=== PATIENT | male | born 1980 | race Caucasian/White ===

== ENCOUNTER 2016-12-24 14:36 | Emergency (ER) ==
[2016-12-24 14:40] VITALS: BP 127/85; TEMP 98.2; BMI 25.8
[2016-12-24] MEDS ORDERED: TORADOL IM STA (14:55)
--- NOTE | 2016-12-24 14:58 | ED.PDOC ---
General ED Provider: Dr. KOLTON POLLARD Chief Complaint: Knee Pain/Injury Stated Complaint: right knee sprain Time Seen by Physician: 14:40 (tiwsited right knee 2 days ago) Mode of Arrival: Walk-In Information Source: Patient Exam Limitations: No limitations Nursing and Triage Documentation Reviewed and Agree: Yes (this pt was seen with bertha anthony RN) Musculoskeletal Complaint Exam - Knee Pain Complaint/Exam Mechanism of Injury: Reports: Trauma Onset/Duration: 2 days Symptoms Are: Still present Onset of Pain: Reports: Days Initial Severity: Moderate Current Severity: Moderate Location: Reports: Discrete Character: Reports: Aching Alleviating: Reports: Rest, Position Aggravating: Reports: Movement, Weight bearing, Prolonged standing Associated Signs and Symptoms: Denies: Swelling, Redness, Bruising, Fever, Weakness, Numbness, Tingling Able to Bear Weight: Yes Septic Arthritis Risk Factors: Reports: None Gout Risk Factors: Reports: None Knee Findings: Present: Tenderness, Limited range of motion. Absent: Swelling, Ecchymosis, Abnormal contour, Rotation, Laceration, Erythema, Warmth, Blisters, Other joint pain, Foreign body David Test Positive: No Shraddha Test Positive: No Limited Range of Motion: Present: Active, Passive, Flexion, Extension, Patellar apprehension Differential Diagnoses: Closed Fracture, Internal Derangement, Sprain, Strain Review of Systems - Review Of Systems Constitutional: Reports: No symptoms Eyes: Reports: No symptoms Ears, Nose, Mouth, Throat: Reports: No symptoms Respiratory: Reports: No symptoms Cardiac: Reports: No symptoms GI: Reports: No symptoms : Reports: No symptoms Musculoskeletal: Reports: Joint pain Skin: Reports: No symptoms Neurological: Reports: No symptoms Endocrine: Reports: No symptoms Hematologic/Lymphatic: Reports: No symptoms All Other Systems: Reviewed and Negative Past Medical History - Past Medical History Previously Healthy: Yes Endocrine: Reports: None Cardiovascular: Reports: None Respiratory: Reports: None Hematological: Reports: None Gastrointestinal: Reports: None Genitourinary: Reports: None Neuro/Psych: Reports: None Musculoskeletal: Reports: None Cancer: Reports: None - Surgical History General Surgical History: Reports: Unknown - Family History Family History: Reports: Unknown - Social History Smoking Status: Current every day smoker Hx Substance Use: Yes (ALCOHOL) Alcohol Screening: None Physical Exam - Physical Exam Appearance: Well-appearing, No pain distress, Well-nourished Eyes: CHRISTA, EOMI, Conjunctiva clear ENT: Ears normal, Nose normal, Oropharynx normal Respiratory: Airway patent, Breath sounds clear, Breath sounds equal, Respirations nonlabored Cardiovascular: RRR, Pulses normal, No rub, No murmur GI/: Soft, Nontender, No masses, Bowel sounds normal, No Organomegaly Musculoskeletal: Limited ROM (right knee ) Skin: Warm, Dry, Normal color Neurological: Sensation intact, Motor intact, Reflexes intact, Cranial nerves intact, Alert, Oriented Psychiatric: Affect appropriate, Mood appropriate Interpretation - Radiology Interpretation Radiology Interpretation By: Radiologist Critical Care Note - Critical Care Note Total Time (mins): 0 Course - Course Orders, Labs, Meds: Orders Category Date Time Status Ketorolac Tromethamine [Toradol] MEDS 12/24/16 14:55 Stat 30 mg IM ONCE STA KNEE, LEFT 4 VIEWS Stat RADS 12/24/16 14:54 Ordered Medications Generic Name Dose Route Start Last Admin Trade Name Freq PRN Reason Stop Dose Admin Ketorolac Tromethamine 30 mg 12/24/16 14:55 Toradol IM 12/24/16 14:56 ONCE STA Vital Signs: Temp Pulse Resp BP Pulse Ox 12/24/16 14:37 98.2 F 94 H 16 127/85 98 Departure - Departure Time of Disposition: 15:45 (D/C INSTRUCTIONS GIVEN BERTHA WAS AT BED SIDE USE OF CRUTCHES AND FOLLOW UP WITH [facility] DISCUSSED) Disposition: HOME SELF-CARE Discharge Problem: Knee pain Instructions: Knee Pain (ED) Condition: Good Pt referred to PMD for follow-up: Yes Additional Instructions: Please call your Family Physician as soon as possible to schedule a follow-up appointment.YOU MUST USE THE CRUTCHES AT ALL TIMES TAKE YOUR PAINMEDS MAKE SURE YOU DO FOLLOW UP WITH [facility]. IF PAIN PERSISTS DIFFERENT OR WORSE MAY BE YOUR KNEE IS TORN. [facility] KNEED REQIRES MRI FOR FURTHER EVALUATION, MAKE SURE YOU DO FOLLOW UP Prescriptions: Hydrocodone/Acetaminophen [[place] 10-325 Tablet] 1 each PO Q8HR #6 tablet Allergies/Adverse Reactions: Allergies tramadol Adverse Reaction (Verified 12/24/16 14:40) SEIZURES Home Medications: Ambulatory Orders Hydrocodone/Acetaminophen [[place] 10-325 Tablet] 1 each PO Q8HR #6 tablet
--- NOTE | 2016-12-24 15:36 | DI ---
EXAM: Four views of the right knee. History: Right knee pain. Findings / impression: Age indeterminate chip/avulsion fracture of the anterior tibial tubercle with adjacent soft tissue swelling. No dislocation.
== END 2016-12-24 16:00 | disposition home or self-care (01) ==
LOC: ED 14:36
DX: M25.561 Pain in right knee (principal); X50.1XXA Overexertion from prolonged static or awkward postures, initial encounter; F17.210 Nicotine dependence, cigarettes, uncomplicated
CPT/HCPCS: 99283

== ENCOUNTER 2017-05-02 11:00 | Outpatient (RCR) ==
--- NOTE | 2017-04-26 15:34 | RS.OPPTEV2 ---
Date of Note: 04/26/17 Visit #: 1 Date of Evaluation: 04/26/17 Payer Source: Medicaid Surgery Performed?: Yes Procedure Performed: Excision of osteophyte, right proximal tibia excision of prepatellar bursa Date of Procedure: 02/17/17 Treatment Diagnosis: Right knee pain, Right knee weakness, s/p knee surgery History of Condition/Mechanism of Injury:: Patient reports having surgery on the right knee. States he had no specific any, but started noticing swelling and pain with activity on the right LE. Reports no prior surgeries or injuries to this knee. Prior Level of Function.....Patient was independent with: ADL's, Self Care, Work /Vocation, Caregiving, Ambulation/Mobility, Community Integration/Access Functional Limitations: Standing, Squatting, Ambulation Current Subjective/complaints:: Patient reports right knee pain with weight bearing activities, squatting, or ascending/descending stairs. States his job requires him to go up and down ladders frequently, squat frequently, and kneel on concrete. States his range of motion is good, but does not feel like he would be able to return to work at this time due to the pain and difficulty with the above mentioned activities. He denies popping in either knee joint. States community or household ambulation does not cause much pain or swelling. States he does notice swelling with prolonged weight bearing. States he returns to the doctor tomorrow for a follow up appointment. He is hoping to return to work in 3-4 weeks. Treatment Side (optional): Right *Precautions: . Medical History Surgical History Comments:: this right knee surgery 02/17/17. Left shoulder labral repair 2006 and 2008 Smoking Status: Current some day smoker Hx Home Medications: Hydrocodone,Ibuprofen, Effexor XR, Buspar, omeprazole Patient's Goals: His goal is to return to his prior level of function and return to work. Pain Assessment - Pain Description Pain Location: Right knee Current Pain Intensity: 3/10 Worst Pain Intensity: 6/10 Functional Outcome Measure LE Functional Scale: 52 (52/80=35% impairment) - G Codes & Severity Modifier G Codes & Modifier: NA Source of G Code score: NA Observation - Observation Inspection: Right knee presents with healing incision running vertically along the patellar tendon, approximately 2 inches in length. Girth Measurement Lower: Left tibial plateau 37 cm, Right tibial plateau 38 cm Gait - Gait Pattern Gait Comments: Patient ambulates without an assistive device with slight decreased stance on the right LE. - Left Knee ROM Left Knee Extension: full extension Left Knee Flexion: 130 (degrees AROM) - Right Knee ROM Right Knee Extension: -1 degree from full extension Right Knee Flexion: 132 (degrees AROM) - Left Knee Strength Left Knee Extension: 5 Normal Left Knee Flexion: 5 Normal - Right Knee Strength Right Knee Extension: 4 Good Right Knee Flexion: 4+ Good + - Special Tests Knee Anterior Drawer Test: Negative Right Knee Posterior Drawer Test: Negative Right Knee Valgus Stress Test: Negative Right Knee Varus Stress Test: Negative Right Knee Shraddha Test: Negative Right Patella Apprehension Test: Negative Right Patellar Compression Test: Negative Right Comments: Strength testing on Biodex with Isokinetic activity: At 60 deg/sec, Left quads 124.7 ft/lbs, HS 55.7 ft/lbs. Right quads 98 ft/lbs, HS 60.4 ft/ lbs. At 45 deg/sec, left quads demonstrate 145.5 ft/lbs, HS 65.3 ft/lbs. Right quads demonstrate 79.4 ft/lbs. HS 57.8 ft/lbs. Palpation Comments:: Reports tenderness with moderate pressure over the incision at the patellar tendon. Sensation - Sensation Right Lower Extremity: Intact/Normal Left Lower Extremity: Intact/Normal Additional Comments: Additional Comments: SLR bilaterally to 45-50 degrees. Patient attempts to perform a standing squat. Demonstrates difficulty and reports pain with knee flexion beyond 80-90 degrees while squatting. Interventions - Exercise/Activities/Manual Therapy Exercises/Activities: Patient instructed in exercises for HEP of SLR's, SAQ's, and multi angle standing SLR's with green theraband. Manual Therapy: NA HOME EXERCISE PROGRAM: SLR's, SAQ's, and multi angle standing SLR's with green theraband. - Charges Timed Code Treatment Minutes: 0 Total Treatment Time: 45 mins Procedures billed for this date of service:: GEOVANY Fields Assessment Assessment: Patient presents s/p excision of osteophyte and proximal tibia excision of prepatellar bursa on 02/17/17. His main complaint is pain and difficulty with squats and other advanced weight bearing activities. He demonstrates weakness of the right quads and HS compared to the left knee. Isokinetic testing demonstrates to have at least a 21% strength deficit of the right quads compared to the left. His job requires frequent squatting, kneeling , and climbing ladders. He demonstrates the need for Right knee strengthening to prepare him to return to work, so that he can perform the above activities without pain. Patient Education: Education of diagnosis, Body/Joint mechanics, Home Exercise Program, Education of Plan of Care Rehab Potential: Good Short Term Goals Goal #1: Pt independent and compliant with HEP. Goal to be met by: 05/10/17 Goal #2: Right quad strength improved by 10% with isokinetic testing. Goal to be met by: 05/10/17 Goal #3: Patient able to perform a squat to 90 degrees knee flexion w/o difficulty. Goal to be met by: 05/10/17 Goal #4: . Verification Specialist Goals Goal #1: Pt knows HEP and to continue ex's to maintain functional level at D/C. Goal to be met by: 06/15/17 Goal #2: Score on LE functional scale improved to 72/80. Goal to be met by: 06/15/17 Goal #3: Pt able to ascend/descend stairs without knee pain or difficulty. Goal to be met by: 06/15/17 Goal #4: Patient able to squat as needed to return to work with minimal difficulty. Goal to be met by: 06/15/17 Plan - Treatment to be Provided Procedures: Therapeutic Exercises, Therapeutic Activity, Neuromuscular Rehab, Patient Education Modalities: Ultrasound/Phonophoresis, Class IV Laser, Cryotherapy - Treatment Plan Frequency: 3 X week Duration: 6 weeks ORDER # VISITS AND/OR THROUGH DATE: 06/15/17 - Treatment Code (1) Knee pain Code(s): M25.569 - PAIN IN UNSPECIFIED KNEE Qualifiers: Chronicity: acute Laterality: right Qualified Code(s): M25.561 - Pain in right knee (2) Quadriceps weakness Code(s): M62.81 - MUSCLE WEAKNESS (GENERALIZED) Comments: M6. (3) S/P knee surgery Code(s): Z98.89 - OTHER SPECIFIED POSTPROCEDURAL STATES * DO NOT USE * Comments: Z98.890
--- NOTE | 2017-04-28 14:05 | RS.OPPTDN ---
Subjective Date of Note: 04/28/17 Visit #: 2 Date of Evaluation: 04/26/17 Payer Source: Medicaid Treatment Diagnosis: Right knee pain, Right knee weakness, s/p knee surgery Current Subjective/complaints:: Patient reports fatigue and mild soreness in right quads following session, but denies pain. States he is working on HEP and has received return to work release for Feburary 12th. *Precautions: . Pain Assessment - Pain Description Pain Location: Right knee Current Pain Intensity: mild soreness Interventions - Exercise/Activities/Manual Therapy Exercises/Activities: Assisted stretching hamstrings, SKTC, and heel cords. Quad sets Added 3# to SLR and 2# to SLR/VMO. SAQ with 6#. Red theraband for hip add and abd with knee in full extension. Red theraband for resistive ankle DF. Biodex for 6sets/5reps of isometrics at angles between 90 and 60 degrees flexion. Isokinetic rehab 5reps each of 45, 60, 75, 110, and 125deg/sec resistance. Ended with 4mins on stationary bike. Total minutes of Exercise: 45mins Manual Therapy: NA HOME EXERCISE PROGRAM: SLR's, SAQ's, and multi angle standing SLR's with green theraband. Hamstring stretching. - Charges Timed Code Treatment Minutes: 45mins Total Treatment Time: 50mins Procedures billed for this date of service:: EX3 Assessment: Patient motivated to progress with strengtheing. Patient Education: Education of diagnosis, Body/Joint mechanics, Home Exercise Program, Home Safety, Activity Modification Patient demonstrates compliance with HEP?: Yes Short Term Goals Goal #1: Pt independent and compliant with HEP. Goal to be met by: 05/10/17 Progress towards Goal:: Progressing Goal #2: Right quad strength improved by 10% with isokinetic testing. Goal to be met by: 05/10/17 Goal #3: Patient able to perform a squat to 90 degrees knee flexion w/o difficulty. Goal to be met by: 05/10/17 Goal #4: . [facility] Goals Goal #1: Pt knows HEP and to continue ex's to maintain functional level at D/C. Goal to be met by: 06/15/17 Progress towards goal: Progressing Goal #2: Score on LE functional scale improved to 72/80. Goal to be met by: 06/15/17 Goal #3: Pt able to ascend/descend stairs without knee pain or difficulty. Goal to be met by: 06/15/17 Goal #4: Patient able to squat as needed to return to work with minimal difficulty. Goal to be met by: 06/15/17 Plan PLAN OF CARE EXPIRES ON:: 06/15/17 ORDER # VISITS AND/OR THROUGH DATE: 06/15/17 PLAN: Progress with strengthening for patient to be able to return to work duties.
--- NOTE | 2017-05-02 13:31 | RS.OPPTDN ---
Subjective Date of Note: 05/02/17 Visit #: 3 Date of Evaluation: 04/26/17 Payer Source: Medicaid Treatment Diagnosis: Right knee pain, Right knee weakness, s/p knee surgery Current Subjective/complaints:: Patient reports only mild fatigue after last session. States he is working on HEP and feels like he is progressing. *Precautions: . Pain Assessment - Pain Description Pain Location: Right knee joint Current Pain Intensity: mild to mod Interventions - Exercise/Activities/Manual Therapy Exercises/Activities: Assisted stretching hamstrings, SKTC, and heel cords. Quad sets. Added 3# to SLR 2s/10reps and 3# SLR/VMO 4s/5reps. SAQ increased to 7 #. Red theraband for hip add and abd with knee in full extension. Red theraband for resistive ankle DF. Ham curl green theraband. All EX 2s/10reps. Began leg press 60# 2s/10reps. Biodex for 6sets/5reps of isometrics at angles between 90 and 60 degrees flexion. Isokinetic rehab 5reps each of 30, 45, 75, 90, 180, and 195deg/sec resistance. Ended with 5mins on stationary bike. Total minutes of Exercise: 45mins Manual Therapy: NA HOME EXERCISE PROGRAM: SLR's, SAQ's, and multi angle standing SLR's with green theraband. Hamstring stretching. - Charges Timed Code Treatment Minutes: 40mins Total Treatment Time: 45mins Procedures billed for this date of service:: EX3 Assessment: Patient progressing well with strengthening in department. Patient Education: Body/Joint mechanics, Home Exercise Program, Home Safety Patient demonstrates compliance with HEP?: Yes Short Term Goals Goal #1: Pt independent and compliant with HEP. Goal to be met by: 05/10/17 Progress towards Goal:: Progressing Goal #2: Right quad strength improved by 10% with isokinetic testing. Goal to be met by: 05/10/17 Progress towards Goal:: Progressing Goal #3: Patient able to perform a squat to 90 degrees knee flexion w/o difficulty. Goal to be met by: 05/10/17 Goal #4: . [facility] Goals Goal #1: Pt knows HEP and to continue ex's to maintain functional level at D/C. Goal to be met by: 06/15/17 Progress towards goal: Progressing Goal #2: Score on LE functional scale improved to 72/80. Goal to be met by: 06/15/17 Goal #3: Pt able to ascend/descend stairs without knee pain or difficulty. Goal to be met by: 06/15/17 Goal #4: Patient able to squat as needed to return to work with minimal difficulty. Goal to be met by: 06/15/17 Plan PLAN OF CARE EXPIRES ON:: 06/15/17 ORDER # VISITS AND/OR THROUGH DATE: 06/15/17 PLAN: Progress strengthening and squat activities to prepare for work activities.
--- NOTE | 2017-05-04 16:23 | RS.CXNS ---
Date of scheduled appointment: 05/04/17 Type: Cancel (Patient called to cancel appointment, stating he could not make it.)
== END 2017-05-04 ==
PROVIDERS: ATTEND Orthopaedic Surgery
DX: M70.41 Prepatellar bursitis, right knee (principal)

== ENCOUNTER 2017-05-13 11:00 | Outpatient (RCR) ==
--- NOTE | 2017-05-05 14:21 | RS.OPPTDN ---
Subjective Date of Note: 05/05/17 Visit #: 4 Date of Evaluation: 04/26/17 Payer Source: Medicaid Treatment Diagnosis: Right knee pain, Right knee weakness, s/p knee surgery Current Subjective/complaints:: Patient reports soreness in the right quads following therapy sessions. He reports he is working *Precautions: . Pain Assessment - Pain Description Pain Description: Burning, Aching Current Pain Intensity: mild Worst Pain Intensity: 5/10 following exercise session Other Comments regarding Pain:: States pain aggravated by exercise, but usually resolves lateral in the day. Interventions - Exercise/Activities/Manual Therapy Exercises/Activities: Assisted stretching hamstrings, SKTC, and heel cords. Quad sets. 3# SLR 2s/10reps and 3# SLR/VMO 4s/5reps. SAQ 7#, 3s/10reps. Red theraband for hip add and abd with knee in full extension. Red theraband for resistive ankle DF. Ham curl green theraband. All EX 2s/10reps. Leg press 60# 3s /10reps. Biodex for 6sets/5reps of isometrics at angles between 90 and 60 degrees flexion. Isokinetic rehab 5reps each of slow speeds 45 and 75deg/sec and fast speeds of 195 and 210deg/sec resistance. Began wall slides with large therapy ball, 3s/10reps. Ended with 6mins on stationary bike. Total minutes of Exercise: 40mins/46mins Manual Therapy: NA HOME EXERCISE PROGRAM: SLR's, SAQ's, and multi angle standing SLR's with green theraband. Hamstring stretching. Wall slides. - Objective Findings Observations,measurements,etc.: Isometric rehab averages 134.6ft# with right quads and 60ft# with right hamstsrings. Isokinetic rehab averages with slow speeds 138.3ft# quads and 60.6ft# hamstrings. Isokinetic averages with fast speeds 81.3ft# quads and 43ft# hamstrings. - Charges Timed Code Treatment Minutes: 40mins Total Treatment Time: 46mins Procedures billed for this date of service:: EX3 Assessment: Patient progressing with exercise and strengthening on Biodex. Patient Education: Home Exercise Program Comments: Patient given copy of new exercise. Patient demonstrates compliance with HEP?: Yes Short Term Goals Goal #1: Pt independent and compliant with HEP. Goal to be met by: 05/10/17 Progress towards Goal:: Progressing Goal #2: Right quad strength improved by 10% with isokinetic testing. Goal to be met by: 05/10/17 Progress towards Goal:: Progressing Goal #3: Patient able to perform a squat to 90 degrees knee flexion w/o difficulty. 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 Goal to be met by: 06/15/17 Progress towards goal: Progressing Goal #2: Score on LE functional scale improved to 72/80. Goal to be met by: 06/15/17 Goal #3: Pt able to ascend/descend stairs without knee pain or difficulty. Goal to be met by: 06/15/17 Goal #4: Patient able to squat as needed to return to work with minimal difficulty. Goal to be met by: 06/15/17 Plan PLAN OF CARE EXPIRES ON:: 06/15/17 ORDER # VISITS AND/OR THROUGH DATE: 06/15/17 PLAN: Progress with strength and ROM of the right knee, preparing for return to work.
--- NOTE | 2017-05-06 12:03 | RS.OPPTDN ---
Subjective Date of Note: 05/06/17 Visit #: 5 Date of Evaluation: 04/26/17 Payer Source: Medicaid Treatment Diagnosis: Right knee pain, Right knee weakness, s/p knee surgery Current Subjective/complaints:: Patient reports increased soreness right knee and quad following last session. Reports he is progressing and doing well overall. *Precautions: . Pain Assessment - Pain Description Pain Location: Right knee Current Pain Intensity: mild to mod Worst Pain Intensity: 5/10 with strengthening exercise Interventions - Exercise/Activities/Manual Therapy Exercises/Activities: Assisted stretching hamstrings, SKTC, and heel cords. Quad sets. 3# SLR 2s/10reps and 3# SLR/VMO 4s/5reps. SAQ 7#, 3s/10reps. Red theraband for hip add and abd with knee in full extension. Green theraband for resistive ankle DF and Ham curl. All EX 2s/10reps. Leg press 90# 3s/10reps. Began elliptical machine slow to mod pace 3mins. Wall slides with large therapy ball, stopped at 10reps due to soreness. Ended with 5mins on stationary bike. Total minutes of Exercise: 40mins/45mins Manual Therapy: NA HOME EXERCISE PROGRAM: SLR's, SAQ's, and multi angle standing SLR's with green theraband. Hamstring stretching. Wall slides. - Objective Findings Observations,measurements,etc.: Demos full right knee ROM. - Charges Timed Code Treatment Minutes: 40mins Total Treatment Time: 45mins Procedures billed for this date of service:: EX3 Assessment: Patient progressing this week but with some increased muscle soreness today. Patient Education: Body/Joint mechanics, Home Exercise Program Patient demonstrates compliance with HEP?: Yes Short Term Goals Goal #1: Pt independent and compliant with HEP. Goal to be met by: 05/10/17 Progress towards Goal:: Partially Met Goal #2: Right quad strength improved by 10% with isokinetic testing. Goal to be met by: 05/10/17 Progress towards Goal:: Met Goal #3: Patient able to perform a squat to 90 degrees knee flexion w/o difficulty. 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 Goal to be met by: 06/15/17 Progress towards goal: Progressing Goal #2: Score on LE functional scale improved to 72/80. Goal to be met by: 06/15/17 Goal #3: Pt able to ascend/descend stairs without knee pain or difficulty. Goal to be met by: 06/15/17 Goal #4: Patient able to squat as needed to return to work with minimal difficulty. Goal to be met by: 06/15/17 Plan PLAN OF CARE EXPIRES ON:: 06/15/17 ORDER # VISITS AND/OR THROUGH DATE: 06/15/17 PLAN: Continue progressing strengthening and working on squatting to prepare for return to work.
--- NOTE | 2017-05-09 13:20 | RS.OPPTDN ---
Subjective Date of Note: 05/09/17 Visit #: 6 Date of Evaluation: 04/26/17 Payer Source: Medicaid Treatment Diagnosis: Right knee pain, Right knee weakness, s/p knee surgery Current Subjective/complaints:: Patient reports squats continue to aggravate pain in the right knee but soreness in right quads resolves with rest. *Precautions: . Pain Assessment - Pain Description Current Pain Intensity: mild with light activity, 5-6/10 following resistive exercise. Interventions - Exercise/Activities/Manual Therapy Exercises/Activities: Assisted stretching hamstrings, SKTC, and heel cords. Quad sets. Increased to 4# SLR 2s/10reps and 4# SLR/VMO 4s/5reps. Increased to SAQ 8#, 3s/10reps. Increased to blue theraband for hip add and abd with knee in full extension. Increased to blue theraband for resistive ankle DF and Ham curl. All EX 2s/10reps. Wall slides with large ball 10reps. Leg press 90# 3s/ 10reps. Elliptical machine slow to mod pace 3mins. Cable anoop station for resisted lunges, 40#, 2s/10reps. Additional wall slides 10reps. Ended with 5mins on stationary bike. Total minutes of Exercise: 40mins Manual Therapy: NA HOME EXERCISE PROGRAM: SLR's, SAQ's, and multi angle standing SLR's with green theraband. Hamstring stretching. Wall slides. - Objective Findings Observations,measurements,etc.: Full ROM right knee - Charges Timed Code Treatment Minutes: 42mins Total Treatment Time: 42mins Procedures billed for this date of service:: EX3 Assessment: Patient progressing with strengthening. Patient Education: Body/Joint mechanics, Home Exercise Program, Home Safety, Activity Modification Patient demonstrates compliance with HEP?: Yes Short Term Goals Goal #1: Pt independent and compliant with HEP. Goal to be met by: 05/10/17 Progress towards Goal:: Met Goal #2: Right quad strength improved by 10% with isokinetic testing. Goal to be met by: 05/10/17 Progress towards Goal:: Met Goal #3: Patient able to perform a squat to 90 degrees knee flexion w/o difficulty. Goal to be met by: 05/10/17 Progress towards Goal:: Partially Met Goal #4: . Mcfp Goals Goal #1: Pt knows HEP and to continue ex's to maintain functional level at D/C. Goal to be met by: 06/15/17 Progress towards goal: Progressing Goal #2: Score on LE functional scale improved to 72/80. Goal to be met by: 06/15/17 Goal #3: Pt able to ascend/descend stairs without knee pain or difficulty. Goal to be met by: 06/15/17 Progress towards goal: Progressing Goal #4: Patient able to squat as needed to return to work with minimal difficulty. Goal to be met by: 06/15/17 Progress towards goal: Progressing Plan PLAN OF CARE EXPIRES ON:: 06/15/17 ORDER # VISITS AND/OR THROUGH DATE: 06/15/17 PLAN: Progress strengthening and squats to prepare patient matt return to work duties.
--- NOTE | 2017-05-11 14:53 | RS.OPPTDN ---
Subjective Date of Note: 05/11/17 Visit #: 7 Date of Evaluation: 04/26/17 Payer Source: Medicaid Treatment Diagnosis: Right knee pain, Right knee weakness, s/p knee surgery Current Subjective/complaints:: Patient reports he is doing better but continues to have mild discomfort with general ambulation. States he feels he will be able to perform most of his work duties but will have trouble squatting or kneeling on right knee. He states he is returning to work on Tuesday, May 16. *Precautions: . Pain Assessment - Pain Description Pain Location: Right knee, patella tendon Current Pain Intensity: 0/10 at rest, 2/10 with movement, 4/10 following therapy today Interventions - Exercise/Activities/Manual Therapy Exercises/Activities: Begins on stationary bike 3mins. Isometric rehab 6s/ 5reps. Isokinetic rehab 4s/5reps slow speeds and 2s/5reps of fast speeds. Wall slides with large ball 10reps. Leg press 150# 2s/10reps. Elliptical machine mod pace 3mins. Cable anoop station for resisted squats with 40# bar at shoulders, 2s/10reps. Additional wall slides 10reps. 15# box lifts from floor, 15reps. Ended with assisted stretching of right hamstrings and SKTC. Total minutes of Exercise: 42mins/45mins Manual Therapy: NA HOME EXERCISE PROGRAM: SLR's, SAQ's, and multi angle standing SLR's with green theraband. Hamstring stretching. Wall slides. - Charges Timed Code Treatment Minutes: 42mins Total Treatment Time: 45mins Procedures billed for this date of service:: EX3 Assessment: Patient progressing well with strengthening. Patient Education: Body/Joint mechanics, Home Exercise Program, Home Safety, Activity Modification Comments: Patient education for safe lifting. Patient demonstrates compliance with HEP?: Yes Short Term Goals Goal #1: Pt independent and compliant with HEP. Goal to be met by: 05/10/17 Progress towards Goal:: Met Goal #2: Right quad strength improved by 10% with isokinetic testing. Goal to be met by: 05/10/17 Progress towards Goal:: Met Goal #3: Patient able to perform a squat to 90 degrees knee flexion w/o difficulty. Goal to be met by: 05/10/17 Progress towards Goal:: Partially Met Goal #4: . Web Sizer Goals Goal #1: Pt knows HEP and to continue ex's to maintain functional level at D/C. Goal to be met by: 06/15/17 Progress towards goal: Progressing Goal #2: Score on LE functional scale improved to 72/80. Goal to be met by: 06/15/17 Goal #3: Pt able to ascend/descend stairs without knee pain or difficulty. Goal to be met by: 06/15/17 Progress towards goal: Progressing Goal #4: Patient able to squat as needed to return to work with minimal difficulty. Goal to be met by: 06/15/17 Progress towards goal: Progressing Plan PLAN OF CARE EXPIRES ON:: 06/15/17 ORDER # VISITS AND/OR THROUGH DATE: 06/15/17 PLAN: Progress strengthening and squat activities to prepare for return to work.
--- NOTE | 2017-05-13 14:45 | RS.OPPTDN ---
Subjective Date of Note: 05/13/17 Visit #: 8 Date of Evaluation: 04/26/17 Payer Source: Medicaid Treatment Diagnosis: Right knee pain, Right knee weakness, s/p knee surgery Current Subjective/complaints:: Patient reports he is pleased with progress. He continues to have discomfort in the right knee, primarily at the patella tendon , but feels he can return to most work duties. He is scheduled to return to work on Tuesday and will be discharged with HEP. *Precautions: . Pain Assessment - Pain Description Pain Location: Right knee Current Pain Intensity: 2/10, 4-5/10 following exercise Worst Pain Intensity: Interventions - Exercise/Activities/Manual Therapy Exercises/Activities: Begins on stationary bike 3mins. Isometric testing 2s/ 5reps then slow speed Isokinetics 2s/5reps and fast speed Isokinetics 2s/5reps, each perform bilaterally for strength comparison. Assisted stretching of bilateral hamstrings and right knee flexion. SLR, SLR/VMO, quad sets, and review of HEP. Patient given blue TB for progression of standing resistive hip x4 directions. Ended with additional 3mins on bike. Total minutes of Exercise: 40mins/46mins Manual Therapy: NA HOME EXERCISE PROGRAM: SLR's, SAQ's, and multi angle standing SLR's with green theraband. Hamstring stretching. Wall slides. - Objective Findings Observations,measurements,etc.: Averages with Isometrics: Right quad 149ft#, hams 59ft#. Left quads 203ft#, hams 71ft#. Isokinetics slow speeds right quads 135ft#, hams 66ft# and left 164ft#, hams 74ft#. Isokinetics fast speeds right quads 87ft#, hams 74ft#, with left quads 105ft#, hams 54ft#. - Charges Timed Code Treatment Minutes: 40mins Total Treatment Time: 46mins Procedures billed for this date of service:: EX3 Assessment: Patient progressed well and benefitted from treatment. He met 4 of 7 treatment goals and is scheduled to go back to work. He will continue HEP. Patient Education: Body/Joint mechanics, Home Exercise Program, Home Safety, Activity Modification, Education of Plan of Care Patient demonstrates compliance with HEP?: Yes Short Term Goals Goal #1: Pt independent and compliant with HEP. Goal to be met by: 05/10/17 Progress towards Goal:: Met Goal #2: Right quad strength improved by 10% with isokinetic testing. Goal to be met by: 05/10/17 Progress towards Goal:: Met Goal #3: Patient able to perform a squat to 90 degrees knee flexion w/o difficulty. Goal to be met by: 05/10/17 Progress towards Goal:: Partially Met Goal #4: . Account Classification Clerk Goals Goal #1: Pt knows HEP and to continue ex's to maintain functional level at D/C. Goal to be met by: 06/15/17 Progress towards goal: Met Goal #2: Score on LE functional scale improved to 72/80. Goal to be met by: 06/15/17 Progress towards goal: Met Goal #3: Pt able to ascend/descend stairs without knee pain or difficulty. Goal to be met by: 06/15/17 Progress towards goal: Partially Met Goal #4: Patient able to squat as needed to return to work with minimal difficulty. Goal to be met by: 06/15/17 Progress towards goal: Partially Met Plan PLAN OF CARE EXPIRES ON:: 06/15/17 ORDER # VISITS AND/OR THROUGH DATE: 06/15/17 PLAN: Discharge with HEP.
--- NOTE | 2017-05-13 14:47 | RS.QUICKDC ---
Discharge from PT Date of Discharge: 05/13/17 Number of Visits: 8 Reason for Discharge: Patient completed 8 sessions and progressed well. He met 4 of 7 treatment goals and was independent with HEP. He was scheduled to return to work and due to travel would not be able to continue attending therapy. Discharged with HEP.
== END 2017-06-01 ==
PROVIDERS: ATTEND Orthopaedic Surgery
DX: M70.41 Prepatellar bursitis, right knee (principal)